=== PATIENT | female | born 1990 | race African-American/Black ===

== ENCOUNTER → 2017-10-30 | Outpatient (REF) | payer SELFPAY ==
[2017-10-30 18:35] LABS: PLATELET COUNT, AUTOMATED 206 K/uL (150-450)
== END ==
PROVIDERS: ATTEND Nurse Practitioner Family
DX: R10.31 Right lower quadrant pain (principal)
CPT/HCPCS: 82040; 82247; 82310; 82374; 82435; 82565; 82947; 84075; 84132; 84155; 84295; 84450; 84460; 84520; 85025

== ENCOUNTER 2018-06-08 09:03 | Emergency (ER) | payer SELFPAY ==
--- NOTE | 2018-06-08 09:07 | ER Report ---
History and Physical Time Seen By MD: 09:07 HPI/ROS CHIEF COMPLAINT: Right upper quadrant abdominal pain, nausea, vomiting HISTORY OF PRESENT ILLNESS: Patient is a 27-year-old female here with complaints of right upper quadrant pain with radiation to the right shoulder, nausea, vomiting which acutely worsened today. Patient has a history of approximately 2 years of similar symptoms which are exacerbated with eating. Patient denies fevers, chills, chest pain, shortness of breath, headache, blurred vision, dysuria, hematuria, melena. Patient reports that over the past week the symptoms have progressively worsened. She reports attempting to eat breakfast however was unable to hold this down and she was not able to hold down her medications this morning. Patient reports taking medications for acid reflux and depression. Patient has vomited several times this morning and is actively nauseated and vomiting at time of evaluation. Patient denies prior abdominal surgeries REVIEW OF SYSTEMS: Constitutional: No fever, no chills. Eyes: No discharge. ENT: No sore throat. Cardiovascular: No chest pain, no palpitations. Respiratory: No cough, no shortness of breath. Gastrointestinal: + RUQ abdominal pain, + nausea and vomiting. Genitourinary: No hematuria. Musculoskeletal: No back pain, + right shoulder pain Skin: No rashes. Neurological: No headache. Allergies: Coded Allergies: No Known Drug Allergies (Unverified , 06/08/18) Home Meds Active Scripts Tramadol Hcl (TRAMADOL HCL) 50 Mg Tablet, 50 MG PO Q6H PRN for PAIN, #12 TAB 0 Refills Prov:CL SÁNCHEZ DO 06/08/18 Ondansetron (ZOFRAN ODT) 4 Mg Tab.rapdis, 4 MG PO Q6H PRN for NAUSEA/VOMITING, #20 TAB.JONATHAN 0 Refills Prov:CL SÁNCHEZ DO 06/08/18 Constitutional Vital Sign - Last 24 Hours 06/08/18 06/08/18 06/08/18 06/08/18 09:08 09:10 09:30 09:33 Temp 97.8 Pulse 97 94 Resp 24 B/P (MAP) 144/82 144/82 (102) 129/79 (96) Pulse Ox 96 O2 Delivery Room Air 06/08/18 06/08/18 06/08/18 06/08/18 10:00 10:03 10:30 10:33 Pulse 77 93 B/P (MAP) 136/50 (78) 131/69 (89) Pulse Ox 97 96 06/08/18 11:00 Pulse 82 B/P (MAP) 126/92 (103) Pulse Ox 94 Physical Exam General Appearance: The patient is alert, has no immediate need for airway protection and no signs of toxicity. Uncomfortable appearing Eyes: Pupils equal and round no pallor or injection. ENT, Mouth: Mucous membranes are moist. Respiratory: There are no retractions, lungs are clear to auscultation. Cardiovascular: Regular rate and rhythm. Gastrointestinal: Abdomen is soft and + tender int the RUQ, no masses, bowel sounds normal. Neurological: No focal neurological deficits Skin: Warm and dry, no rashes. Musculoskeletal: Neck is supple non tender. Extremities are nontender, nonswollen and have full range of motion. DIFFERENTIAL DIAGNOSIS: After history and physical exam differential diagnosis was considered for abdominal pain including but not limited to appendicitis, cholecystitis, gastritis and urinary tract infection. Medical Decision Making Data Points Result Diagram: 06/08/18 0912 06/08/18 0912 Laboratory Hematology Test 06/08/18 09:07 06/08/18 09:12 Urine Color Yellow Urine Clarity Slightly-cloudy Urine pH 5.0 pH (4.8-9.5) Urine Specific [place] 1.027 Urine Protein Negative mg/dL (NEGATIVE) Urine Glucose (UA) Negative mg/dL (NEGATIVE) Urine Ketones Negative mg/dL (NEGATIVE) Urine Blood Negative (NEGATIVE) Urine Nitrite Negative (NEGATIVE) Urine Bilirubin Negative (NEGATIVE) Urine Urobilinogen Negative mg/dL (0.2-1.9) Urine Leukocyte Esterase Trace (NEGATIVE) Urine RBC <1 /HPF (0-2/HPF) Urine WBC 8 /HPF (0-5/HPF) Urine Squamous Epithelial Cells Many /LPF (</=FEW) Urine Bacteria Negative /HPF (NONE-FEW) Urine Mucus Few /HPF (NONE-FEW) Red Blood Count 5.15 M/uL (4.17-5.56) Mean Corpuscular Volume 83.3 fL (80.0-96.0) Mean Corpuscular Hemoglobin 28.5 pg (26.0-33.0) Mean Corpuscular Hemoglobin Concent 34.2 g/dL (32.0-36.0) Red Cell Distribution Width 13.2 % (11.5-14.5) Mean Platelet Volume 10.6 fL (7.2-11.1) Neutrophils (%) (Auto) 66.3 % (39.4-72.5) Lymphocytes (%) (Auto) 24.8 % (17.6-49.6) Monocytes (%) (Auto) 6.8 % (4.1-12.4) Eosinophils (%) (Auto) 1.6 % (0.4-6.7) Basophils (%) (Auto) 0.5 % (0.3-1.4) Nucleated RBC Relative Count (auto) 0.0 /100WBC Neutrophils # (Auto) 3.7 K/uL (2.0-7.4) Lymphocytes # (Auto) 1.4 K/uL (1.3-3.6) Monocytes # (Auto) 0.4 K/uL (0.3-1.0) Eosinophils # (Auto) 0.1 K/uL (0.0-0.5) Basophils # (Auto) 0.0 K/uL (0.0-0.1) Nucleated RBC Absolute Count (auto) 0.00 K/uL Sodium Level 142 mmol/L (137-145) Potassium Level 3.7 mmol/L (3.5-5.0) Chloride Level 104 mmol/L (98-107) Carbon Dioxide Level 25 mmol/L (22-31) Blood Urea Nitrogen 15 mg/dl (7-18) Creatinine 0.80 mg/dl (0.52-1.04) Glomerular Filtration Rate Calc > 60.0 Random Glucose 105 mg/dl (75-110) Calcium Level 9.3 mg/dl (8.4-10.2) Total Bilirubin 0.7 mg/dl (0.2-1.3) Aspartate Amino Transf (AST/SGOT) 73 U/L (0-35) Alanine Aminotransferase (ALT/SGPT) 65 U/L (0-56) Alkaline Phosphatase 71 U/L (0-126) Total Protein 7.7 g/dl (6.3-8.2) Albumin 4.3 g/dl (3.5-5.0) Lipase 79 U/L (23-300) Human Chorionic Gonadotropin, Qual Negative (NEGATIVE) Chemistry Test 06/08/18 09:07 06/08/18 09:12 Urine Color Yellow Urine Clarity Slightly-cloudy Urine pH 5.0 pH (4.8-9.5) Urine Specific [place] 1.027 Urine Protein Negative mg/dL (NEGATIVE) Urine Glucose (UA) Negative mg/dL (NEGATIVE) Urine Ketones Negative mg/dL (NEGATIVE) Urine Blood Negative (NEGATIVE) Urine Nitrite Negative (NEGATIVE) Urine Bilirubin Negative (NEGATIVE) Urine Urobilinogen Negative mg/dL (0.2-1.9) Urine Leukocyte Esterase Trace (NEGATIVE) Urine RBC <1 /HPF (0-2/HPF) Urine WBC 8 /HPF (0-5/HPF) Urine Squamous Epithelial Cells Many /LPF (</=FEW) Urine Bacteria Negative /HPF (NONE-FEW) Urine Mucus Few /HPF (NONE-FEW) White Blood Count 5.6 k/uL (4.5-11.0) Red Blood Count 5.15 M/uL (4.17-5.56) Hemoglobin 14.7 g/dL (12.0-16.0) Hematocrit 42.9 % (34.0-47.0) Mean Corpuscular Volume 83.3 fL (80.0-96.0) Mean Corpuscular Hemoglobin 28.5 pg (26.0-33.0) Mean Corpuscular Hemoglobin Concent 34.2 g/dL (32.0-36.0) Red Cell Distribution Width 13.2 % (11.5-14.5) Platelet Count 225 K/uL (150-450) Mean Platelet Volume 10.6 fL (7.2-11.1) Neutrophils (%) (Auto) 66.3 % (39.4-72.5) Lymphocytes (%) (Auto) 24.8 % (17.6-49.6) Monocytes (%) (Auto) 6.8 % (4.1-12.4) Eosinophils (%) (Auto) 1.6 % (0.4-6.7) Basophils (%) (Auto) 0.5 % (0.3-1.4) Nucleated RBC Relative Count (auto) 0.0 /100WBC Neutrophils # (Auto) 3.7 K/uL (2.0-7.4) Lymphocytes # (Auto) 1.4 K/uL (1.3-3.6) Monocytes # (Auto) 0.4 K/uL (0.3-1.0) Eosinophils # (Auto) 0.1 K/uL (0.0-0.5) Basophils # (Auto) 0.0 K/uL (0.0-0.1) Nucleated RBC Absolute Count (auto) 0.00 K/uL Glomerular Filtration Rate Calc > 60.0 Calcium Level 9.3 mg/dl (8.4-10.2) Total Bilirubin 0.7 mg/dl (0.2-1.3) Aspartate Amino Transf (AST/SGOT) 73 U/L (0-35) Alanine Aminotransferase (ALT/SGPT) 65 U/L (0-56) Alkaline Phosphatase 71 U/L (0-126) Total Protein 7.7 g/dl (6.3-8.2) Albumin 4.3 g/dl (3.5-5.0) Lipase 79 U/L (23-300) Human Chorionic Gonadotropin, Qual Negative (NEGATIVE) Urinalysis Test 06/08/18 09:07 Urine Color Yellow Urine Clarity Slightly-cloudy Urine pH 5.0 pH (4.8-9.5) Urine Specific [place] 1.027 Urine Protein Negative mg/dL (NEGATIVE) Urine Glucose (UA) Negative mg/dL (NEGATIVE) Urine Ketones Negative mg/dL (NEGATIVE) Urine Blood Negative (NEGATIVE) Urine Nitrite Negative (NEGATIVE) Urine Bilirubin Negative (NEGATIVE) Urine Urobilinogen Negative mg/dL (0.2-1.9) Urine Leukocyte Esterase Trace (NEGATIVE) Urine RBC <1 /HPF (0-2/HPF) Urine WBC 8 /HPF (0-5/HPF) Urine Squamous Epithelial Cells Many /LPF (</=FEW) Urine Bacteria Negative /HPF (NONE-FEW) Urine Mucus Few /HPF (NONE-FEW) EKG/Imaging Imaging GALLBLADDER HISTORY: RUQ abd pain COMPARISON: None. FINDINGS: Gallbladder: Gallbladder is partially contracted and not ideally evaluated. By history the patient ate 1 1/2 hours previously. No definite stones or sludge identified. Liver: Negative. Common duct: Normal, two mm diameter. Pancreas: Obscured by bowel gas Right kidney: Unremarkable measuring 8.9 cm in length Upper abdominal aorta and IVC: Patent. Ascites: None visualized. IMPRESSION: Gallbladder is partially contracted and not ideally evaluated. By history the patient had a recent meal. No definite stones or sludge identified ED Course/Re-evaluation ED Course Patient is a 27-year-old female here with complaints of right upper quadrant abdominal pain, nausea, vomiting with suspected gallbladder disease. Patient has had these symptoms on and off for approximately 2 years however she reports that over the past week the symptoms acutely worsened. Patient is unable to hold down oral intake at this time having several episodes of vomiting after attempting to take her medications in the morning and her breakfast. Ultrasound of the right upper quadrant was completed to evaluate for gallbladder disease and was unremarkable. Patient was given Zofran, fluids and later reglan and a GI cocktail. Labs were unremarkable and patient was discussed with Dr. Miguel who will follow with her in the outpatient setting. Tramadol and Zofran were given for OP treatment and patient was advised to take omeprazole 40 mg BID until follow up. Patient was stable at time of discharge. Decision to Disposition Date: Jun 08, 2018 Decision to Disposition Time: 11:16 Depart Departure Latest Vital Signs Vital Signs Date Time Temp Pulse Resp B/P (MAP) Pulse Ox O2 Delivery O2 Flow Rate FiO2 06/08/18 11:00 82 126/92 (103) 94 06/08/18 09:08 97.8 24 Room Air Impression: Primary Impression: Right upper quadrant abdominal pain Additional Impression: Nausea and vomiting Condition: Improved Disposition: HOME OR SELF-CARE New Scripts Tramadol Hcl (TRAMADOL HCL) 50 Mg Tablet 50 MG PO Q6H PRN for PAIN, #12 TAB 0 Refills Prov: CL SÁNCHEZ DO 06/08/18 Ondansetron (ZOFRAN ODT) 4 Mg Tab.rapdis 4 MG PO Q6H PRN for NAUSEA/VOMITING, #20 TAB.JONATHAN 0 Refills Prov: CL SÁNCHEZ DO 06/08/18 Patient Instructions: Abdominal Pain (ED) Additional Instructions: Please take omeprazole 40mg twice daily 30 minutes before meals for the next 2 weeks. You may take 1 tablet of Zofran every 4-6 hours as needed for nausea. You may take 1 tablet of tramadol every 6-8 hours as needed for pain control. Please follow-up with Dr. Miguel in the next 2 weeks for further evaluation of gastritis and gallbladder disease. Please return promptly develop worsening pain, fevers, inability to hold down fluids or food. Problem Qualifiers CL SÁNCHEZ DO Jun 08, 2018 09:07
[2018-06-08] MEDS ORDERED: ONDANSETRON 4 MG/2 ML VIAL IVP ONE ×2 (09:15→09:20)
[2018-06-08] MEDS ORDERED: NS(*) 0.9% 1000 ML BAG 1,000 ML IV ONE (09:17)
[2018-06-08 09:34] LABS: PLATELET COUNT, AUTOMATED 225 K/uL (150-450)
--- NOTE | 2018-06-08 10:35 | RADIOLOGY IMAGING REPORT ---
FACILITY: [facility] PATIENT NAME: Sandra Gordon : 1990 MR: [id number] V: [id number] EXAM DATE: ORDERING PHYSICIAN: CL SÁNCHEZ TECHNOLOGIST: Location: [facility] [place] Patient: Sandra Gordon : 1990 Visit/Account:[id number] Date of Sevice: 06/08/2018 GALLBLADDER HISTORY: RUQ abd pain COMPARISON: None. FINDINGS: Gallbladder: Gallbladder is partially contracted and not ideally evaluated. By history the patient a te 1 1/2 hours previously. No definite stones or sludge identified. Liver: Negative. Common duct: Normal, two mm diameter. Pancreas: Obscured by bowel gas Right kidney: Unremarkable measuring 8.9 cm in length Upper abdominal aorta and IVC: Patent. Ascites: None visualized. IMPRESSION: Gallbladder is partially contracted and not ideally evaluated. By history the patient had a recent m eal. No definite stones or sludge identified Report Dictated By: Jelena Ji MD at 06/08/2018 10:28 AM Report E-Signed By: Jelena Ji MD at 06/08/2018 10:30 AM WSN:[email or web address]
[2018-06-08] MEDS ORDERED: METOCLOPRAMIDE 10 MG/2 ML SDV IVP ONE (10:50)
[2018-06-08] MEDS ORDERED: MAG HYD/AL HYD/SIMETH 30ML UDC PO ONE (10:55)
[2018-06-08] MEDS ORDERED: ATRO/SCOPOL/HYOSCY/PB 5 ML ELX PO ONE (10:55)
[2018-06-08] MEDS ORDERED: LIDOCAINE 2% VISC SLN 15ML UDC PO ONE (10:55)
[2018-06-08 11:00] VITALS: BP 126/92
[2018-06-08] MEDS ORDERED: ONDA4TAB PO (11:20)
[2018-06-08] MEDS ORDERED: TRAM-420 PO (11:20)
== END 2018-06-08 11:37 | disposition home or self-care (01) ==
LOC: ER 09:11
DX: R10.11 Right upper quadrant pain (principal); R11.2 Nausea with vomiting, unspecified
CPT/HCPCS: 76705; 81001; 83690; 84703; 85025; 96374; 96375; 99284; J2405; J2765; J7030; 82040; 82247; 82310; 82374; 82435; 82565; 82947; 84075; 84132; 84155; 84295; 84450; 84460; 84520

== ENCOUNTER 2018-10-13 00:33 | Inpatient (IN) | payer OTHER ==
[2018-10-13] VITALS (36 sets, daily range): BP systolic 92–156; BP diastolic 36–100
[~2018-10-13 00:33] MED LIST: ONDA4TAB PO; TRAM-420 PO
[2018-10-13] MEDS ORDERED: NS(*) 0.9% 1000 ML BAG 1,000 ML IV ONE (00:35)
[2018-10-13] MEDS ORDERED: ACTIVATED CHAR/SORB 25GM/120ML PO ONE (00:35)
--- NOTE | 2018-10-13 00:41 | ER Report ---
History and Physical Time Seen By MD: 00:34 Hx. of Stated Complaint: PT HAD SUICIDE ATTEMPT WITH OD ON MULTIPLE PILLS. HPI/ROS CHIEF COMPLAINT: Attempted overdose HISTORY OF PRESENT ILLNESS: This is a 28-year-old female. She is brought to ER by EMS. She has been depressed and suicidal on and off for a few weeks now, roseanne g-standing history of depression. Has been admitted to [facility] in the past for depression. Tonight, she acted on her suicidal thoughts and took a large amount of medications. This happened at approximately midnight. We do not know the amounts. She says she took Tylenol, Excedrin, ibuprofen, and Benadryl. All of these were fairly full bottles that she emptied into her mouth, unknown how many, she estimates at least 50 or more of each. She also had old prescription bottles of naproxen 500 mg, ketorolac 10 mg, topiramate 50 mg, and amitriptyline 25 mg. She emptied the rest of these medicines into her mouth as well, unknown how many. After she took the medicines, she panicked and was sorry she had done so and talked to her roommate which is how it came to light. She is now panicky and crying. She also feels very dizzy and her heart is racing. She does feel very nauseated. She denies any chest pain or shortness of breath at this time. No recent illnesses. She did leave suicide notes behind. She is currently under emergency skilled nursing by [place] [employer]. Allergies: Coded Allergies: No Known Drug Allergies (Unverified , 06/08/18) Home Meds Active Scripts Tramadol Hcl (TRAMADOL HCL) 50 Mg Tablet, 50 MG PO Q6H PRN for PAIN, #12 TAB 0 Refills Prov:CL SÁNCHEZ DO 06/08/18 Ondansetron (ZOFRAN ODT) 4 Mg Tab.rapdis, 4 MG PO Q6H PRN for NAUSEA/VOMITING, #20 TAB.JONATHAN 0 Refills Prov:CL SÁNCHEZ DO 06/08/18 Reviewed Nurses Notes: Yes Hx Substance Use Disorder: No Hx Alcohol Use: No Constitutional Vital Sign - Last 24 Hours 10/13/18 10/13/18 10/13/18 10/13/18 00:34 00:35 00:40 00:48 Pulse 149 160 Resp 14 15 B/P (MAP) 150/97 (114) 150/97 136/97 (110) Pulse Ox 88 97 O2 Delivery Room Air 10/13/18 10/13/18 10/13/18 10/13/18 00:50 00:55 01:00 01:03 Resp 21 B/P (MAP) 144/82 (102) 142/81 (101) 147/83 (104) Pulse Ox 92 10/13/18 10/13/18 10/13/18 10/13/18 01:05 01:20 01:33 01:38 Pulse 122 140 Resp 15 34 B/P (MAP) 143/89 (107) 128/72 (90) 106/63 (77) 10/13/18 10/13/18 10/13/18 10/13/18 01:45 01:53 02:01 02:08 Pulse 125 127 Resp 26 22 B/P (MAP) 121/73 (89) 136/77 (96) Pulse Ox 94 93 10/13/18 10/13/18 10/13/18 10/13/18 02:23 02:30 02:38 02:53 Pulse 128 171 128 Resp 23 24 21 B/P (MAP) 121/69 (86) Pulse Ox 93 93 92 10/13/18 03:13 Pulse 125 Resp 21 Pulse Ox 91 Intake and Output 10/12/18 10/12/18 10/13/18 14:59 22:59 06:59 Intake Total 1000 ml Balance 1000 ml Physical Exam General Appearance: The patient is alert. She is panicked and crying in tears. Eyes: Pupils are equal, round. Reactive to light. She has injection from crying, no pallor or icterus noted. Extraocular movements are intact. ENT: Mucous membranes are moist. Normal oral mucosa. Posterior oropharynx is normal. Neck: Supple and non tender. Respiratory: Lungs are clear to auscultation. Cardiovascular: Tachycardic with a regular rhythm. No murmurs, gallops or rubs. Normal capillary refill. No edema. Gastrointestinal: Abdomen is soft and non tender. Nondistended. Normal active bowel sounds. Neurological: Alert and oriented x3. She is moving all extremities. No focal neurologic deficits noted. Skin: Warm and dry. No rashes. Musculoskeletal: Extremities are nontender. No tenderness in palpation of the cervical, thoracic and lumbar spine. DIFFERENTIAL DIAGNOSIS: After history and physical exam, differential diagnosis was considered for overdose of multiple medications. We will go ahead and call poison control to get this list. She's been given 25 g of activated charcoal with sorbitol. IV started with a liter of normal saline. On the heart monitor and monitoring for now. Medical Decision Making Data Points Result Diagram: 10/13/18 0042 10/13/18 0042 Laboratory Hematology Test 10/13/18 00:42 10/13/18 00:57 10/13/18 02:45 Red Blood Count 5.20 M/uL (4.17-5.56) Mean Corpuscular Volume 82.1 fL (80.0-96.0) Mean Corpuscular Hemoglobin 27.7 pg (26.0-33.0) Mean Corpuscular Hemoglobin Concent 33.8 g/dL (32.0-36.0) Red Cell Distribution Width 13.6 % (11.5-14.5) Mean Platelet Volume 10.3 fL (7.2-11.1) Neutrophils (%) (Auto) 69.0 % (39.4-72.5) Lymphocytes (%) (Auto) 23.7 % (17.6-49.6) Monocytes (%) (Auto) 6.0 % (4.1-12.4) Eosinophils (%) (Auto) 0.7 % (0.4-6.7) Basophils (%) (Auto) 0.6 % (0.3-1.4) Nucleated RBC Relative Count (auto) 0.0 /100WBC Neutrophils # (Auto) 7.1 K/uL (2.0-7.4) Lymphocytes # (Auto) 2.4 K/uL (1.3-3.6) Monocytes # (Auto) 0.6 K/uL (0.3-1.0) Eosinophils # (Auto) 0.1 K/uL (0.0-0.5) Basophils # (Auto) 0.1 K/uL (0.0-0.1) Nucleated RBC Absolute Count (auto) 0.00 K/uL Sodium Level 138 mmol/L (137-145) Potassium Level 3.5 mmol/L (3.5-5.0) Chloride Level 105 mmol/L (98-107) Carbon Dioxide Level 21 mmol/L (22-31) Blood Urea Nitrogen 17 mg/dl (7-18) Creatinine 0.90 mg/dl (0.52-1.04) Glomerular Filtration Rate Calc > 60.0 Random Glucose 114 mg/dl (75-110) Calcium Level 9.5 mg/dl (8.4-10.2) Magnesium Level 1.8 mg/dl (1.7-2.2) Total Bilirubin 0.4 mg/dl (0.2-1.3) Aspartate Amino Transf (AST/SGOT) 42 U/L (0-35) Alanine Aminotransferase (ALT/SGPT) 45 U/L (0-56) Alkaline Phosphatase 119 U/L (0-126) Total Protein 8.0 g/dl (6.3-8.2) Albumin 4.3 g/dl (3.5-5.0) Acetaminophen Level 11 ug/ml Serum Alcohol < 10 mg/dl Urine Color Yellow Urine Clarity Clear Urine pH 7.0 pH (4.8-9.5) Urine Specific [place] 1.028 Urine Protein 30 mg/dL (NEGATIVE) Urine Glucose (UA) Negative mg/dL (NEGATIVE) Urine Ketones Negative mg/dL (NEGATIVE) Urine Blood Negative (NEGATIVE) Urine Nitrite Negative (NEGATIVE) Urine Bilirubin Negative (NEGATIVE) Urine Urobilinogen Negative mg/dL (0.2-1.9) Urine Leukocyte Esterase Negative (NEGATIVE) Urine RBC <1 /HPF (0-2/HPF) Urine WBC 1 /HPF (0-5/HPF) Urine Squamous Epithelial Cells Many /LPF (NONE-FEW) Urine Bacteria Negative /HPF (NONE-FEW) Urine Mucus Few /HPF (NONE-FEW) Urine HCG, Qualitative Negative (NEGATIVE) Urine Opiates Screen Negative Urine Barbiturates Screen Negative Ur Tricyclic Antidepressants Screen Positive Urine Phencyclidine Screen Negative Urine Amphetamines Screen Negative Urine Benzodiazepines Screen Negative Urine Cocaine Screen Negative Urine Cannabinoids Screen Positive Salicylates Level < 10 mg/L Salicylate Last Dose Date unk Chemistry Test 10/13/18 00:42 10/13/18 00:57 10/13/18 02:45 White Blood Count 10.3 k/uL (4.5-11.0) Red Blood Count 5.20 M/uL (4.17-5.56) Hemoglobin 14.4 g/dL (12.0-16.0) Hematocrit 42.7 % (34.0-47.0) Mean Corpuscular Volume 82.1 fL (80.0-96.0) Mean Corpuscular Hemoglobin 27.7 pg (26.0-33.0) Mean Corpuscular Hemoglobin Concent 33.8 g/dL (32.0-36.0) Red Cell Distribution Width 13.6 % (11.5-14.5) Platelet Count 266 K/uL (150-450) Mean Platelet Volume 10.3 fL (7.2-11.1) Neutrophils (%) (Auto) 69.0 % (39.4-72.5) Lymphocytes (%) (Auto) 23.7 % (17.6-49.6) Monocytes (%) (Auto) 6.0 % (4.1-12.4) Eosinophils (%) (Auto) 0.7 % (0.4-6.7) Basophils (%) (Auto) 0.6 % (0.3-1.4) Nucleated RBC Relative Count (auto) 0.0 /100WBC Neutrophils # (Auto) 7.1 K/uL (2.0-7.4) Lymphocytes # (Auto) 2.4 K/uL (1.3-3.6) Monocytes # (Auto) 0.6 K/uL (0.3-1.0) Eosinophils # (Auto) 0.1 K/uL (0.0-0.5) Basophils # (Auto) 0.1 K/uL (0.0-0.1) Nucleated RBC Absolute Count (auto) 0.00 K/uL Glomerular Filtration Rate Calc > 60.0 Calcium Level 9.5 mg/dl (8.4-10.2) Magnesium Level 1.8 mg/dl (1.7-2.2) Total Bilirubin 0.4 mg/dl (0.2-1.3) Aspartate Amino Transf (AST/SGOT) 42 U/L (0-35) Alanine Aminotransferase (ALT/SGPT) 45 U/L (0-56) Alkaline Phosphatase 119 U/L (0-126) Total Protein 8.0 g/dl (6.3-8.2) Albumin 4.3 g/dl (3.5-5.0) Acetaminophen Level 11 ug/ml Serum Alcohol < 10 mg/dl Urine Color Yellow Urine Clarity Clear Urine pH 7.0 pH (4.8-9.5) Urine Specific [place] 1.028 Urine Protein 30 mg/dL (NEGATIVE) Urine Glucose (UA) Negative mg/dL (NEGATIVE) Urine Ketones Negative mg/dL (NEGATIVE) Urine Blood Negative (NEGATIVE) Urine Nitrite Negative (NEGATIVE) Urine Bilirubin Negative (NEGATIVE) Urine Urobilinogen Negative mg/dL (0.2-1.9) Urine Leukocyte Esterase Negative (NEGATIVE) Urine RBC <1 /HPF (0-2/HPF) Urine WBC 1 /HPF (0-5/HPF) Urine Squamous Epithelial Cells Many /LPF (NONE-FEW) Urine Bacteria Negative /HPF (NONE-FEW) Urine Mucus Few /HPF (NONE-FEW) Urine HCG, Qualitative Negative (NEGATIVE) Urine Opiates Screen Negative Urine Barbiturates Screen Negative Ur Tricyclic Antidepressants Screen Positive Urine Phencyclidine Screen Negative Urine Amphetamines Screen Negative Urine Benzodiazepines Screen Negative Urine Cocaine Screen Negative Urine Cannabinoids Screen Positive Salicylates Level < 10 mg/L Salicylate Last Dose Date unk Toxicology Test 10/13/18 00:42 10/13/18 00:57 10/13/18 02:45 Acetaminophen Level 11 ug/ml Serum Alcohol < 10 mg/dl Urine Opiates Screen Negative Urine Barbiturates Screen Negative Ur Tricyclic Antidepressants Screen Positive Urine Phencyclidine Screen Negative Urine Amphetamines Screen Negative Urine Benzodiazepines Screen Negative Urine Cocaine Screen Negative Urine Cannabinoids Screen Positive Salicylates Level < 10 mg/L Salicylate Last Dose Date unk Urinalysis Test 10/13/18 00:57 Urine Color Yellow Urine Clarity Clear Urine pH 7.0 pH (4.8-9.5) Urine Specific [place] 1.028 Urine Protein 30 mg/dL (NEGATIVE) Urine Glucose (UA) Negative mg/dL (NEGATIVE) Urine Ketones Negative mg/dL (NEGATIVE) Urine Blood Negative (NEGATIVE) Urine Nitrite Negative (NEGATIVE) Urine Bilirubin Negative (NEGATIVE) Urine Urobilinogen Negative mg/dL (0.2-1.9) Urine Leukocyte Esterase Negative (NEGATIVE) Urine RBC <1 /HPF (0-2/HPF) Urine WBC 1 /HPF (0-5/HPF) Urine Squamous Epithelial Cells Many /LPF (NONE-FEW) Urine Bacteria Negative /HPF (NONE-FEW) Urine Mucus Few /HPF (NONE-FEW) Urine HCG, Qualitative Negative (NEGATIVE) EKG/Imaging EKG Interpretation 12 lead EKG: Rhythm: Supraventricular tachycardia, rate 164 [place]: normal QRS: normal ST segments: normal ED Course/Re-evaluation Clinical Indication for ER IV: Hydration, IV Access ED Course Patient very worked up initially. Tachycardia finally came down to a more reasonable level with IV fluids. She became more and more groggy with slurring speech. Poison control contacted. Watching for a 4 hour and 7 hour tylenol levels. Salicylates to be repeated every 2 hours and watching for further changes. Monitor shows no further ectopy, narrow complex QRS and sinus tachycardia. As she became more groggy, started to be confused and combative at times. Used soft restraints and later after family arrived, they were able to help keep her calm. Discussed current labs and what we are going to be doing going forward with her mother. Repeat aspirin level negative. Admitted to the ICU, Dr. Souza. Emergency skilled nursing upheld, but not medically clear. Decision to Disposition Date: Oct 13, 2018 Decision to Disposition Time: 03:11 Depart Departure Latest Vital Signs Vital Signs Date Time Temp Pulse Resp B/P (MAP) Pulse Ox O2 Delivery O2 Flow Rate FiO2 10/13/18 03:13 125 21 91 10/13/18 02:30 121/69 (86) 10/13/18 00:35 Room Air Impression: Primary Impression: Overdose Additional Impression: Suicide attempt by drug ingestion Condition: Critical Disposition: Admitted from ER Problem Qualifiers Primary Impression: Overdose Encounter type: initial encounter Injury intent: intentional self-harm Qualified Codes: T50.902A - Poisoning by unspecified drugs, medicaments and biological substances, intentional self-harm, initial encounter Additional Impression: Suicide attempt by drug ingestion Encounter type: initial encounter Qualified Codes: T50.902A - Poisoning by unspecified drugs, medicaments and biological substances, intentional self- harm, initial encounter BRANDY TOLENTINO MD Oct 13, 2018 00:41
[2018-10-13 01:35] LABS: PLATELET COUNT, AUTOMATED 266 K/uL (150-450)
--- NOTE | 2018-10-13 01:41 | EKG ---
[place] [facility] [place] NAME: RACHEL RAINEY : [id number] MR: [id number] V: [id number] EXAM DATE: ORDERING PHYSICIAN: BRANDY TOLENTINO TECHNOLOGIST: DIANNE Test Reason : OD Blood Pressure : / mmHG Vent. Rate : 164 BPM Atrial Rate : 166 BPM P-R Int : 000 ms QRS Dur : 076 ms QT Int : 284 ms P-R-T Axes : 000 050 027 degrees QTc Int : 469 ms Supraventricular tachycardia T wave abnormality, consider inferior ischemia Abnormal ECG No previous ECGs available Confirmed by HALEY ROBERTSON ([id number]) on 10/13/2018 6:18:17 AM Referred By: Confirmed By:HALEY ROBERTSON
--- NOTE | 2018-10-13 03:28 | BHS - Psychiatric Evaluation ---
ER - Title 25 MHE Evaluation Title 25 Evaluation Patient Detained By: Law Enforcement Referral Source: Patient told her roommate what she did and contacted EMS Date Patient Detained: Oct 13, 2018 Time Patient Detained: 00:45 Date Fdc Expires: Oct 18, 2018 Time Fdc Expires: 00:45 Legal Status: Police Hold: No Legal Status: Residence: [facility] Assessment Data Provided By: Patient, Law Enforcement, Family Member(s), Friend(s) HPI/ROS: CHIEF COMPLAINT: Attempted overdose HISTORY OF PRESENT ILLNESS: This is a 28-year-old female. She is brought to ER by EMS. She has been depressed and suicidal on and off for a few weeks now, long-standing history of depression. Has been admitted to [facility] in the past for depression. Tonight, she acted on her suicidal thoughts and took a large amount of medications. This happened at approximately midnight. We do not know the amounts. She says she took Tylenol, Excedrin, ibuprofen, and Benadryl. All of these were fairly full bottles that she emptied into her mouth, unknown how many, she estimates at least 50 or more of each. She also had old prescription bottles of naproxen 500 mg, ketorolac 10 mg, topiramate 50 mg, and amitriptyline 25 mg. She emptied the rest of these medicines into her mouth as well, unknown how many. After she took the medicines, she panicked and was sorry she had done so and talked to her roommate which is how it came to light. She is now panicky and crying. She also feels very dizzy and her heart is racing. She does feel very nauseated. She denies any chest pain or shortness of breath at this time. No recent illnesses. She did leave suicide notes behind. She is currently under emergency senior care by [employer]. Admit due to SI or Attempt: Yes Suicide Plan: Has Plan with Access Alcohol or Drugs Involved: Yes Is Patient Info Reliable: Yes Is Collateral Info Reliable: Yes Mental Status Exam General Appearance: Tearful Speech: Clear, Spontaneous Mood: Dysthmic/Depressed Affect: Sad Thought Process: Organized Thought Content: Suicidal Ideation Sensorium: Other (mild groggy) Cognition: Alert & Oriented-Person, Alert & Oriented-Place, Alert & Oriented- Time, Cxieq-Fgznhote-Ghoynppvk Memory: Recent Insight Judgment: Fair Current Risk & History Current Dangerous Risk Assessm: Current Suicide Ideation, Current Suicide Attempt Past Dangerous Risk Assessm: Suicide Ideation-last 6mo Previous Suicide Attempt: No Previous Attempt Previous Psychiatric Illness: Yes Previous Diagnosis/Treatment: Had been admitted to [facility] in the past, reported as a very bad experience. Previous Psychiatric Treatment: Yes Risk Assessment & Disposition Evaluated Risk Assessment: Current high risk, but needs medical clearance and then behavioral health intervention Impression: Primary Impression: Overdose Additional Impression: Suicide attempt by drug ingestion Meets Mental Illness Req.: Yes Meets Dangerousness Req.: Yes Emergency Fdc to be: Upheld Date of Decision: Oct 13, 2018 Time of Decision: 03:12 Patient is Medically Stable at: No Disposition: ICU Problem Qualifiers Primary Impression: Overdose Encounter type: initial encounter Injury intent: intentional self-harm Qualified Codes: T50.902A - Poisoning by unspecified drugs, medicaments and biological substances, intentional self-harm, initial encounter Additional Impression: Suicide attempt by drug ingestion Encounter type: initial encounter Qualified Codes: T50.902A - Poisoning by unspecified drugs, medicaments and biological substances, intentional self- harm, initial encounter BRANDY TOLENTINO MD Oct 13, 2018 03:28
[2018-10-13] MEDS ORDERED: NS(*) 0.9% 1000 ML BAG 1,000 ML IV PRN (04:48)
[2018-10-13] MEDS ORDERED: INFLUENZA VIRUS VAC 0.5ML SYR IM ONLY ONE (04:50)
--- NOTE | 2018-10-13 04:59 | History & Physical ---
History of Present Illness Chief Complaint Overdose History of Present Illness This patient presented to the emergency room after a suicide attempt by overdose. She reports taking acetaminophen, Excedrin, ibuprofen, Benadryl, naproxen, ketorolac, topiramate, and amitriptyline. She was placed on a police hold in the emergency department. She does have a prior history of suicide attempt. History Problems: (1) Suicide attempt by drug ingestion Status: Acute Home Meds Active Scripts Tramadol Hcl (TRAMADOL HCL) 50 Mg Tablet, 50 MG PO Q6H PRN for PAIN, #12 TAB 0 Refills Prov:CL SÁNCHEZ S DO 06/08/18 Ondansetron (ZOFRAN ODT) 4 Mg Tab.rapdis, 4 MG PO Q6H PRN for NAUSEA/VOMITING, #20 TAB.JONATHAN 0 Refills Prov:CL SÁNCHEZ S DO 06/08/18 Allergies: Coded Allergies: No Known Drug Allergies (Unverified , 06/08/18) Hx Alcohol Use: No Review of Systems All Systems Reviewed/Normal: Yes Exam Vital Signs Vital Signs Date Time Temp Pulse Resp B/P (MAP) Pulse Ox O2 Delivery O2 Flow Rate FiO2 10/13/18 03:54 121 23 92 10/13/18 02:30 121/69 (86) 10/13/18 00:35 Room Air Neuro: No Gross deficits Eyes: PERRLA Cardiovascular: Regular Rate and Rhythm Respiratory: Clear to Auscultation GI: Abd Soft and Non-Tender Extremities: No Edema Integumentary: No Cyanosis Psych: Other (Lethargic.) Medical Decision Making Data Points Result Diagram: 10/13/18 0042 10/13/18 004 Item Value Date Time Ur Tricyclic Antidepressants Screen Positive 10/13/18 005 Urine Cannabinoids Screen Positive 10/13/18 005 Serum Alcohol < 10 mg/dl 10/13/18 0042 Salicylates Level < 10 mg/L 10/13/18 004 Salicylates Level < 10 mg/L 10/13/18 0245 Acetaminophen Level 11 ug/ml 10/13/18 0042 Assessment and Plan Problems: (1) Suicide attempt by drug ingestion Status: Acute Assessment & Plan: She reports taking multiple medications in a suicide attempt. We do not know the quantities of the medications. Her salicylate levels have remained negative on repeat testing. Her initial acetaminophen level was 11, a repeat level is currently pending. She is mostly lethargic and tachycardic on arrival to the ICU. Recommendations from poison control are listed on her chart. We will observe her in the ICU, and plan for transfer to psychiatry once she is stable. Venous Thromboembolism Antithrombotics Is Pt On Any Antithrombotics?: No Exam Sepsis Risk: No Definite Risk Problem Qualifiers (1) Suicide attempt by drug ingestion: Encounter type: initial encounter Qualified Codes: T50.902A - Poisoning by unspecified drugs, medicaments and biological substances, intentional self-harm, initial encounter HALEY ROBERTSON DO Oct 13, 2018 04:59
[2018-10-13] MEDS ORDERED: LORazepam 2 MG/ML VIAL IVP PRN (07:30)
[2018-10-13] MEDS ORDERED: PROMETHAZINE 25 MG/ML 1 ML AMP IVP PRN (07:30)
[2018-10-13 08:07] LABS: PLATELET COUNT, AUTOMATED 220 K/uL (150-450)
--- NOTE | 2018-10-13 08:17 | EKG ---
FACILITY: [facility] PATIENT NAME: RACHEL RAINEY : [id number] MR: [id number] V: [id number] EXAM DATE: ORDERING PHYSICIAN: HALEY ROBERTSON TECHNOLOGIST: Test Reason : OD Blood Pressure : / mmHG Vent. Rate : 116 BPM Atrial Rate : 116 BPM P-R Int : 150 ms QRS Dur : 082 ms QT Int : 340 ms P-R-T Axes : 062 059 027 degrees QTc Int : 472 ms Sinus tachycardia Otherwise normal ECG When compared with ECG of 13-OCT-2018 00:45, No significant change was found Confirmed by ALEA ZENDEJAS ([id number]) on 10/13/2018 4:15:03 PM Referred By: Confirmed By:ALEA ZENDEJAS
[2018-10-13] MEDS: LR(*) 1000 ML BAG 1,000 ML IV PRN ×3 (08:22→22:22)
[2018-10-13] MEDS ORDERED: ESCI20TA38 PO (09:09)
[2018-10-13] MEDS ORDERED: LAMO150T36 PO (09:09)
--- NOTE | 2018-10-13 14:28 | EKG ---
FACILITY: [facility] PATIENT NAME: RACHEL RAINEY : [id number] MR: [id number] V: [id number] EXAM DATE: ORDERING PHYSICIAN: ALEA ZENDEJAS TECHNOLOGIST: Test Reason : OD Blood Pressure : / mmHG Vent. Rate : 109 BPM Atrial Rate : 109 BPM P-R Int : 138 ms QRS Dur : 080 ms QT Int : 348 ms P-R-T Axes : 057 043 007 degrees QTc Int : 468 ms Sinus tachycardia Otherwise normal ECG When compared with ECG of 13-OCT-2018 08:06, No significant change was found Confirmed by ALEA ZENDEJAS ([id number]) on 10/13/2018 4:27:28 PM Referred By: Confirmed By:ALEA ZENDEJAS
--- NOTE | 2018-10-13 16:09 | NUR ---
Pt does report to nurse that she took "Six Benadryl first so that when I took the other medications I would just be sleepy." Pt reports she took "Ketorolac, Topamax, some small vick and blue pills that little old ladies take to sleep, Excedrin, Tylenol and Ibuprofen". Pt reports to nurse that she did not over dose on her current prescriptions of Lexapro and Lamictal. She reports taking these two mediations in the morning and at normal doses. Nurse has called ER x2, Pharmacy and S to locate a bag of the empty pill bottles. It is reported that there was a bag of bottles that were brought in by EMS. Bag has not been located.
--- NOTE | 2018-10-13 16:34 | Miscellaneous Provider Note ---
Miscellaneous Provider Note Note More awake and interactive this afternoon, but still having periods of sleeping a lot. Item Value Date Time Acetaminophen Level 17 ug/ml 10/13/18 0801 Salicylates Level < 10 mg/L 10/13/18 0801 Potassium Level 4.1 mmol/L 10/13/18 0801 Sodium Level 138 mmol/L 10/13/18 0801 Sodium Level 137 mmol/L 10/13/18 1359 Chloride Level 112 mmol/L H 10/13/18 1359 Carbon Dioxide Level 18 mmol/L L 10/13/18 1359 Potassium Level 4.0 mmol/L 10/13/18 1359 Blood Urea Nitrogen 11 mg/dl 10/13/18 1359 Creatinine 0.90 mg/dl 10/13/18 1359 Blood Urea Nitrogen 13 mg/dl 10/13/18 0801 Carbon Dioxide Level 16 mmol/L L 10/13/18 0801 Chloride Level 111 mmol/L H 10/13/18 0801 Creatinine 0.80 mg/dl 10/13/18 0801 Total Bilirubin 0.6 mg/dl 10/13/18 0801 Aspartate Amino Transf (AST/SGOT) 40 U/L H 10/13/18 0801 Alanine Aminotransferase (ALT/SGPT) 44 U/L 10/13/18 0801 Alkaline Phosphatase 91 U/L 10/13/18 0801 Alkaline Phosphatase 85 U/L 10/13/18 1359 Alanine Aminotransferase (ALT/SGPT) 40 U/L 10/13/18 1359 Aspartate Amino Transf (AST/SGOT) 37 U/L H 10/13/18 1359 Total Bilirubin 0.8 mg/dl 10/13/18 1359 Magnesium Level 2.0 mg/dl 10/13/18 1359 Acetaminophen Level 29 ug/ml 10/13/18 0504 Salicylates Level < 10 mg/L 10/13/18 0245 Vent. Rate : 109 BPM Atrial Rate : 109 BPM P-R Int : 138 ms QRS Dur : 080 ms QT Int : 348 ms P-R-T Axes : 057 043 007 degrees QTc Int : 468 ms Sinus tachycardia Otherwise normal ECG When compared with ECG of 13-OCT-2018 08:06, No significant change was found Confirmed by ALEA ZENDEJAS ([id number]) on 10/13/2018 4:27:28 PM No concerns with labs or QRS/QTc on ECG. Continue monitoring in the ICU until more awake and coherent. ALEA ZENDEJAS MD Oct 13, 2018 16:34
[2018-10-14] VITALS (29 sets, daily range): BP systolic 95–138; BP diastolic 58–97
[2018-10-14] MEDS: LR(*) 1000 ML BAG 1,000 ML IV PRN (04:58)
[2018-10-14 05:24] LABS: PLATELET COUNT, AUTOMATED 179 K/uL (150-450)
[2018-10-14] MEDS ORDERED: KCL (*) 20 MEQ/100 ML PREMIX 100 ML IV ONE ×2 (07:05→10:50)
--- NOTE | 2018-10-14 07:19 | Hospitalist Progress Note ---
Subjective Progress Notes Subjective She reports some constipation and not much appetite. No abdominal pain or nausea at present. Physical Exam Vital Signs Date Time Temp Pulse Resp B/P (MAP) Pulse Ox O2 Delivery O2 Flow Rate FiO2 10/14/18 06:30 105 15 138/77 (97) 93 Room Air 10/14/18 05:00 97.8 10/13/18 04:45 1.0 Intake and Output 10/14/18 06:59 Intake Total 3896 ml Balance 3896 ml Intake Oral 200 ml IV Total 3696 ml # Voids 3 General Appearance: Alert, Awake Cardiovascular: Other (Regular slightly tachycardic no murmur) Respiratory: Clear to Auscultation GI: Soft and Non-Tender (BS present) Extremities: Warm, Perfused Psych: Alert & Oriented X3 Result Diagram: 10/14/18 0503 10/14/18 0503 Assessment and Plan Problems: (1) Suicide attempt by drug ingestion Status: Acute Assessment & Plan: She reports taking multiple medications in a suicide attempt. We do not know the exact quantities of the medications. Her salicylate levels have remained negative on repeat testing. Her initial acetaminophen level was 11 and repeat testing did not place her into toxic range. She was somewhat lethargic and tachycardic on arrival to the ICU, but has improved significantly. EKG has not shown any changes and no dysrhythmias were noted. She did have some mild acidosis and mild hypokalemia. Will continue to monitor, replace electrolytes. Transfer to S unit when stable. (2) Hypokalemia Status: Acute Assessment & Plan: Mild. Will replace with IV supplement. Watch labs closely. Exam Sepsis Risk: No Definite Risk Problem Qualifiers (1) Suicide attempt by drug ingestion: Encounter type: initial encounter Qualified Codes: T50.902A - Poisoning by unspecified drugs, medicaments and biological substances, intentional self-harm, initial encounter ONEAL MARCIAL MD Oct 14, 2018 07:19
--- NOTE | 2018-10-14 08:03 | EKG ---
FACILITY: [facility] PATIENT NAME: RACHEL RAINEY : [id number] MR: [id number] V: [id number] EXAM DATE: ORDERING PHYSICIAN: ONEAL MARCIAL TECHNOLOGIST: Test Reason : OD Blood Pressure : / mmHG Vent. Rate : 113 BPM Atrial Rate : 113 BPM P-R Int : 128 ms QRS Dur : 082 ms QT Int : 334 ms P-R-T Axes : 063 044 007 degrees QTc Int : 458 ms Sinus tachycardia Otherwise normal ECG When compared with ECG of 13-OCT-2018 14:15, No significant change was found Confirmed by ONEAL MARCIAL ([id number]) on 10/14/2018 9:10:41 AM Referred By: Confirmed By:ONEAL MARCIAL
[2018-10-14] MEDS ORDERED: BISACODYL 10 MG SUPP PR PRN (09:25)
--- NOTE | 2018-10-14 11:44 | EKG ---
[place] [facility] [place] RACHEL RAINEY : [id number] MR: [id number] V: [id number] EXAM DATE: ORDERING PHYSICIAN: ONEAL MARCIAL TECHNOLOGIST: Test Reason : CHEST PAIN Blood Pressure : / mmHG Vent. Rate : 126 BPM Atrial Rate : 126 BPM P-R Int : 118 ms QRS Dur : 078 ms QT Int : 328 ms P-R-T Axes : 065 047 012 degrees QTc Int : 475 ms Sinus tachycardia No acute appearing changes noted When compared with ECG of 14-OCT-2018 07:51, No significant change was found Confirmed by ONEAL MARCIAL ([id number]) on 10/14/2018 4:35:32 PM Referred By: Confirmed By:ONEAL MARCIAL
--- NOTE | 2018-10-14 11:46 | RADIOLOGY IMAGING REPORT ---
FACILITY: [facility] - [place] PATIENT NAME: Sandra Gordon : 1990 MR: [id number] V: [id number] EXAM DATE: ORDERING PHYSICIAN: ONEAL MARCIAL TECHNOLOGIST: Location: [facility] [place] Patient: Sandra Gordon : 1990 Visit/Account:[id number] Date of Sevice: 10/14/2018 CHEST SINGLE AP INDICATION: chest pain COMPARISON: None available FINDINGS: Heart size within normal limits. There is no focal infiltrate or lobar consolidation. There is no pneumothorax or pleural effusion. IMPRESSION: 1. No acute cardiopulmonary process. Report Dictated By: Victoriano Childress at 10/14/2018 11:39 AM Report E-Signed By: Victoriano Childress at 10/14/2018 11:39 AM WSN:LAURYN
--- NOTE | 2018-10-14 13:25 | NUR ---
Poison control calls to check on pt. Recommended to continue to monitor QTc as needed. Noted that they also called 10/13 as well to check on pt - labs, EKG, VS and mentation.
[2018-10-14] MEDS ORDERED: LR(*) 1000 ML BAG 1,000 ML IV PRN (17:10)
[2018-10-14] MEDS ORDERED: MAGNESIUM HYDROXIDE* 30ML UDCP PO ONE (17:55)
[2018-10-15] VITALS (15 sets, daily range): BP systolic 117–135; BP diastolic 70–90
[2018-10-15 05:14] LABS: PLATELET COUNT, AUTOMATED 202 K/uL (150-450)
[2018-10-15] MEDS ORDERED: BISACODYL 10 MG SUPP PR PRN (07:50)
[2018-10-15] MEDS ORDERED: MAGNESIUM HYDROXIDE* 30ML UDCP PO PRN (07:50)
--- NOTE | 2018-10-15 08:36 | Medical Nutrition Therapy ---
Nutrition Anthropometrics Weight (Pounds): 228 Weight (Calculated Kilograms): 103.802 Volodymyr Nutrition Score: Adequate Volodymyr Nutrition Risk Score: 18 Dietary Referral Nutrition Risk Factors: Nutrition Risk Comment: Physical Findings Physical Appearance: Skin Appearance Skin Appearance: Edema Edema Location Modifier: Both Edema Location: Generalized Type of Edema: Degree of Edema: Gastrointestinal Symptoms GI Symtoms: Constipation Tube Present: Bowel Sounds: Recent Bowel Pattern: Stool Characteristics: Nutritional Diagnosis Nutritional Risk Acuity 3: Substance abuse Nutritional Acuity: 3-Mild Nutrition Diagnosis: Altered GI Function Nutrition Etiology: Psychological Issues Nutrition Problem/Etiology/Sym: Altered GI function as related to psychological issues as related to constipation due to drug overdose Energy Requirement: 2575 (25kcal/kg-missing ht making this the only calucation possible w/out ht) Protein Requirement: 82.4 (0.8 protein g/day) Fluid Requirement: 2000 (2000mL/day due to constipation) Diet Type: Diet as Tolerated REBECCA/REG Nutrition Intervention: Incr diet as tolerated Nutrition Monitoring & Eval Nutrition Goals: Eat 50-100% Meal, Drink > 1500 cc/day Nutrition Monitoring: Monitor appetite and for improvement in constipation RD Patient Assessment Time: [address] Assessment Type: RD Assessment Patient Nutrition Acuity: 3-Mild Follow Up Date: Oct 20, 2018 Nutritional Comment: Pt admitted for suicide attempt by overdose. pt is curretnly NPO. Alb 3.5. Will cont to monitor. 10/15/18-pt is currently on REBECCA with 100% intake for the 2 previous meals. Prior to lunch 10/14 pt had refused meals, reported constipation and poor appetite. Pt has non-pitting edema. Labs of intersts: K of 3.4 was low but has improved to WNL of 4.2. Cl of 111-114 is high and CO2 of 16-20 is low. Pt on polyethylene glycol (increase fiber and 1500-2000mL of water per day), docusate calcium (take with milk or juice to prevent throat irritation and mask bitter taste), bisacodyl (take on empty stomach with water and juice/avoid milk products for 1 hour prior and after), and magnesium hydroxide (take with water and juice) to manage constipation. Recommendations for constipation are: increase water to 1500-2000mL/day, increase fiber to 25 grams/day by increasing fruits/vegetable/whole grains, and increased physical activity. Monitor appetite and for improvement in constipation.-UMANG LAINEZ Oct 15, 2018 08:36
[2018-10-15] MEDS ORDERED: POLYETHYLENE GLYCOL 17 GM PKT PO SCH (09:00)
[2018-10-15] MEDS ORDERED: DOCUSATE SODIUM 100 MG CAP PO SCH (09:00)
--- NOTE | 2018-10-15 10:17 | Hospitalist Progress Note ---
Subjective Progress Notes Subjective This patient was admitted for a suicide attempt by overdose. She has had constipation since admission. Patient Complains of: Cardiovascular: No: Chest Pain Respiratory: No: Shortness of Breath Physical Exam Vital Signs Date Time Temp Pulse Resp B/P (MAP) Pulse Ox O2 Delivery O2 Flow Rate FiO2 10/15/18 09:47 95 18 117/79 (92) 96 Room Air 10/15/18 09:00 98.1 10/14/18 13:50 Intake and Output 10/15/18 06:59 Intake Total 2948 ml Balance 2948 ml Intake Oral 2050 ml IV Total 898 ml # Voids 4 Cardiovascular: Regular Rate and Rhythm Respiratory: Clear to Auscultation GI: Soft and Non-Tender Result Diagram: 10/15/18 0503 10/15/18 0503 Assessment and Plan Problems: (1) Suicide attempt by drug ingestion Status: Acute Assessment & Plan: She reports taking multiple medications in a suicide attempt . We do not know the exact quantities of the medications. Her salicylate levels have remained negative on repeat testing. Her initial acetaminophen level was 11 and repeat testing did not place her into toxic range. She was somewhat lethargic and tachycardic on arrival to the ICU, but has improved significantly. EKG has not shown any changes and no dysrhythmias were noted. She did have some mild acidosis and mild hypokalemia. (2) Hypokalemia Status: Acute Assessment & Plan: Resolved with supplementation. (3) Constipation Assessment & Plan: A constipation protocol has been ordered. Exam Sepsis Risk: No Definite Risk Problem Qualifiers (1) Suicide attempt by drug ingestion: Encounter type: initial encounter Qualified Codes: T50.902A - Poisoning by unspecified drugs, medicaments and biological substances, intentional self-harm, initial encounter HALEY ROBERTSON DO Oct 15, 2018 10:17
--- NOTE | 2018-10-15 12:50 | Hospitalist Depart ---
Discharge Summary Reason for Hosp/Final Diag: (1) Suicide attempt by drug ingestion Status: Acute Hospital Course & Plan: She reports taking multiple medications in a suicide attempt. We do not know the exact quantities of the medications. Her salicylate levels have remained negative on repeat testing. Her initial a cetaminophen level was 11 and repeat testing did not place her into toxic range. She was somewhat lethargic and tachycardic on arrival to the ICU, but has improved significantly. EKG has not shown any changes and no dysrhythmias were noted. She did have some mild acidosis and mild hypokalemia. (2) Hypokalemia Status: Acute Hospital Course & Plan: Resolved with supplementation. (3) Constipation Hospital Course & Plan: A constipation protocol has been ordered. Departure Latest Vital Signs Vital Signs 10/15/18 10/15/18 09:00 12:00 Temp 98.1 Pulse 111 Resp 22 B/P (MAP) 129/90 (103) Pulse Ox 97 O2 Delivery Room Air Weight (Pounds): 228 Weight (Ounces): 13.5 Result Diagram: 10/15/18 0503 10/15/18 0503 Condition: Improved Discharge: [facility] Discharge Instructions Home Meds Reported Medications Escitalopram Oxalate (LEXAPRO) 20 Mg Tablet, 20 MG PO QDAY, TAB 10/13/18 Lamotrigine (LAMOTRIGINE) 150 Mg Tablet, 150 MG PO BID 10/13/18 Discontinued Scripts Tramadol Hcl (TRAMADOL HCL) 50 Mg Tablet, 50 MG PO Q6H PRN for PAIN, #12 TAB 0 Refills Prov:CL SÁNCHEZ DO 06/08/18 Ondansetron (ZOFRAN ODT) 4 Mg Tab.rapdis, 4 MG PO Q6H PRN for NAUSEA/VOMITING, #20 TAB.JONATHAN 0 Refills Prov:CL SÁNCHEZ DO 06/08/18 Diet: Regular Activity: As Tolerated Special Instructions: Venous Thromboembolism Antithrombotics Is Pt On Any Antithrombotics?: No Problem Qualifiers (1) Suicide attempt by drug ingestion: Encounter type: initial encounter Qualified Codes: T50.902A - Poisoning by unspecified drugs, medicaments and biological substances, intentional self-harm, initial encounter HALEY ROBERTSON DO Oct 15, 2018 12:50
== END 2018-10-15 13:45 | DRG 918 ==
LOC: ER 00:37 → ICU 03:17
PROVIDERS: ADMIT Family Medicine; ATTEND Family Medicine
DX: T39.1X2A Poisoning by 4-Aminophenol derivatives, intentional self-harm, initial encounter (principal); T39.312A Poisoning by propionic acid derivatives, intentional self-harm, initial encounter; T45.0X2A Poisoning by antiallergic and antiemetic drugs, intentional self-harm, initial encounter; T39.8X2A Poisoning by other nonopioid analgesics and antipyretics, not elsewhere classified, intentional self-harm, initial encounter; T43.012A Poisoning by tricyclic antidepressants, intentional self-harm, initial encounter; K59.00 Constipation, unspecified; E87.6 Hypokalemia; R00.0 Tachycardia, unspecified; Z91.5 Personal history of self-harm
CPT/HCPCS: 36415; 71045; 80305; 80320; 80329; 81001; 81025; 82040; 82247; 82310; 82374; 82435; 82565; 82947; 83735; 84075; 84132; 84155; 84295; 84443; 84450; 84460; 84520; 85025; 93005; 96360; 99285; A4353; J2060; J3480; J7030; J7120

== ENCOUNTER 2018-10-15 13:58 | Inpatient (IN) | payer OTHER ==
[~2018-10-15] VITALS: Ht 170.2 cm; Wt 107.5 kg
[2018-10-15 13:55] VITALS: BP 118/86
[~2018-10-15 13:58] MED LIST changes: +ESCI20TA38 PO; +LAMO150T36 PO
[2018-10-15] MEDS ORDERED: MAG HYD/AL HYD/SIMETH 30ML UDC PO PRN (14:55)
[2018-10-15 18:00] VITALS: BP 129/86
[2018-10-15 20:49] VITALS: BP 110/96
[2018-10-15] MEDS: DOCUSATE SODIUM 100 MG CAP PO SCH (20:58)
[2018-10-16 06:16] VITALS: BP 102/70
[2018-10-16] MEDS: DOCUSATE SODIUM 100 MG CAP PO SCH ×2 (08:08→21:19)
[2018-10-16] MEDS: MULTIVITAMINS TAB PO SCH (08:09)
[2018-10-16 10:45] VITALS: BP 124/72
--- NOTE | 2018-10-16 12:08 | EKG ---
FACILITY: [facility] PATIENT NAME: RACHEL RAINEY : [id number] MR: [id number] V: [id number] EXAM DATE: ORDERING PHYSICIAN: PHOENIX PATRICIA TECHNOLOGIST: MIKE Marlow Reason : OD Blood Pressure : / mmHG Vent. Rate : 092 BPM Atrial Rate : 092 BPM P-R Int : 130 ms QRS Dur : 086 ms QT Int : 348 ms P-R-T Axes : 072 063 042 degrees QTc Int : 430 ms Normal sinus rhythm Normal ECG Now with normalization of inferior T inversion/flattening Confirmed by ALEA ZENDEJAS ([id number]) on 10/16/2018 1:32:22 PM Referred By: Confirmed By:ALEA ZENDEJAS
[2018-10-16 15:10] VITALS: BP 126/81
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
[2018-10-16 18:05] VITALS: BP 128/76
[2018-10-17 07:13] VITALS: BP 100/58
[2018-10-17] MEDS: MULTIVITAMINS TAB PO SCH (08:54)
[2018-10-17] MEDS: DOCUSATE SODIUM 100 MG CAP PO SCH ×2 (08:54→20:44)
--- NOTE | 2018-10-17 10:46 | BHS Progress Note ---
[facility] - Subjective Progress Notes Subjective "I'm a little frustrated today. I feel a little isolated. My best friend was going to visit me but she didn't."' Rating depression 04/06, anxiety 06/07, anger 06/07 Sleep variable,"I tossed and turned." Completed time line yesterday, talked w/mother "It didn't go well." Denies urge for harm to self, denies suicidal ideation Suicidal Ideation: None Homicidal Ideation: None [facility] - Objective Physical Exam Vital Signs Laboratory Tests 10/16/18 12:32 Laboratory Tests 10/16/18 12:32: Sodium Level 138, Potassium Level 3.9, Chloride Level 110, Carbon Dioxide Level 17, Blood Urea Nitrogen 11, Creatinine 1.00, Glomerular Filtration Rate Calc > 60.0, Random Glucose 90, Calcium Level 9.4, Total Bilirubin 0.2, Aspartate Amino Transf (AST/SGOT) 29, Alanine Aminotransferase (ALT/SGPT) 52, Alkaline Phosphatase 89, Total Protein 6.9, Albumin 3.9 Deferred Medications (Trade) Dose Ordered Sig/Radha Route PRN Reason Start Time Stop Time Status Last Admin Dose Admin Docusate Sodium (Colace(*) 100 Mg Cap (Or Equiv)) 100 mg BID PO 10/15/18 21:00 11/14/18 20:59 10/17/18 08:54 Multivitamins (Thera-M Enhanced Tab (Or Equiv)) 1 each QDAY PO 10/16/18 09:00 11/15/18 08:59 10/17/18 08:54 Muscle Strength and Tone: WNL Gait and Station: Steady [facility] Medications Reviewed: Side Effects, Benefits of Medication, Risks Allergies Reviewed: Yes Mental Status Exam General Appearance: Casual, Well Groomed, Good Eye Contact, Cooperative, Polite, Good Interaction Speech: Clear, Spontaneous, Normal Rate, Normal Rhythm, Normal Volume, Normal Tone Mood: Dysthmic/Depressed Affect: Full and Appropriate; No Calm; Anxious Thought Process: Organized, Logical, Goal Directed; No Loose Associations Thought Content: No Suicidal Ideation, No Homicidal Ideation, No Delusions, No Auditory Halllucinations, No Visual Hallucinations, No Thought Broadcasting, No Ideas of Reference, No Obsessions, No Compulsions Sensorium: Clear Cognition: Alert & Oriented-Person, Alert & Oriented-Place, Alert & Oriented- Time, Zxlfx-Wutjayft-Xszvtobdd Memory: Immediate, Recent, Remote Intelligence: Average Insight Judgment: Fair Result Diagram: 10/16/18 1232 [facility] Assessment and Plan Zqjx-dz-Qoam Encounter Date: Oct 17, 2018 Vgcq-ky-Vppt Encounter Time: 10:41 [facility] Plan: Admit to Unit, Necessary Precautions, Individual/Group Therapy, Admin/Titrate Meds, Educate Patient Multpiple Antipsychotics Used: Yes Problems: (1) Major depressive disorder, recurrent Status: Chronic (2) Adjustment disorder with depressed mood Status: Acute (3) Suicide attempt by drug ingestion Status: Acute (4) Overdose Status: Acute Condition Restart Lexapro and Lamotrigine Maintain precautions Monitor labs, EKG Treatment team 10/18/18 PHOENIX PATRICIA NP Oct 17, 2018 10:46
[2018-10-17] MEDS: ESCITALOPRAM OXALATE 10 MG TAB PO SCH (11:30)
[2018-10-17] MEDS: lamoTRIgine 100 MG TAB PO SCH (11:31)
[2018-10-17 13:06] VITALS: BP 129/77
[2018-10-17 15:05] VITALS: BP 125/75
[2018-10-18 05:59] VITALS: BP 122/71
[2018-10-18 06:13] LABS: PLATELET COUNT, AUTOMATED 234 K/uL (150-450)
[2018-10-18] MEDS: MULTIVITAMINS TAB PO SCH (07:49)
[2018-10-18] MEDS: ESCITALOPRAM OXALATE 10 MG TAB PO SCH (07:50)
[2018-10-18] MEDS: lamoTRIgine 100 MG TAB PO SCH (07:51)
[2018-10-18] MEDS: DOCUSATE SODIUM 100 MG CAP PO SCH ×2 (07:51→20:52)
[2018-10-18 10:30] VITALS: BP 128/90
--- NOTE | 2018-10-18 10:59 | BHS Progress Note ---
[facility] - Subjective Progress Notes Subjective Pt seen in treatment team meeting with Olya Sam her transactional attorney present by speaker phone. Pt says she is "starting to come out of the fog" from the effects of the overdose, feeling more alert. Says she did some "soul-searching" yesterday, and then she did a good job of talking about her several stressors, s etting good healthy boundaries with her mother, her need to get better about taking her medications regularly, the things that do and don't help her in therapy. She is psychologically-minded and motivated to make changes to prevent any future self harm. She understands how serious her overdose was and how close she came to . Today she is complaining of feeling dizzy, even while seated, does not sound like vertigo, she is steady on her feet, VSS. Also some blurred vision. I suspect this is all residual effects from overdose, especially with anticholinergic effects. Will decrease her lamictal to 100 mg because that may also be contributing to side effects. Pt has moved her bowels. We will be seeking an out-patient commitment rather than a commitment to the [facility], her transactional attorney is pursuing this. Will work with her on intensive DBT education/coping skills and hope for tentative discharge Thursday if we can have a team meeting with her roommate to solidify out patient support. Suicidal Ideation: Resolving Homicidal Ideation: None [facility] - Objective Physical Exam Vital Signs Vital Signs 10/18/18 05:59 Temp 97.4 Pulse 92 Resp 15 B/P (MAP) 122/71 (88) Pulse Ox 97 O2 Delivery Room Air Muscle Strength and Tone: WNL Gait and Station: Steady [facility] Medications Reviewed: Side Effects, Benefits of Medication, Risks Allergies Reviewed: Yes Mental Status Exam General Appearance: Casual, Well Groomed, Good Eye Contact, Cooperative, Polite, Good Interaction, Tearful Speech: Clear, Spontaneous, Normal Rate, Normal Rhythm, Normal Volume, Normal Tone Mood: Dysthmic/Depressed Affect: Sad, Anxious Thought Process: Organized, Logical, Goal Directed; No Loose Associations Thought Content: Suicidal Ideation (resolving); No Homicidal Ideation, No Delusions, No Auditory Halllucinations, No Visual Hallucinations, No Thought Broadcasting, No Ideas of Reference, No Obsessions, No Compulsions Sensorium: Clear Cognition: Alert & Oriented-Person, Alert & Oriented-Place, Alert & Oriented- Time, Rnszx-Reployxg-Rvuyrvovf Memory: Immediate, Recent, Remote Intelligence: Average Insight Judgment: Fair Result Diagram: 10/18/1860010/18/18600 [facility] Assessment and Plan Ttth-xm-Rldy Encounter Date: Oct 18, 2018 Rleo-fk-Jkuh Encounter Time: 10:00 [facility] Plan: Admit to Unit, Necessary Precautions, Individual/Group Therapy, Admin/Titrate Meds, Educate Patient Tobacco Medications: Not Appropriate Condition Multpiple Antipsychotics Used: No Problems: (1) Persistent depressive disorder (2) PTSD (post-traumatic stress disorder) (3) Suicide attempt by drug ingestion Status: Acute ALLEN LYONS MD Oct 18, 2018 10:59
[2018-10-18 12:24] VITALS: BP 133/87
[2018-10-18 21:58] VITALS: BP 131/85
[2018-10-19 05:55] VITALS: BP 114/69
[2018-10-19] MEDS: DOCUSATE SODIUM 100 MG CAP PO SCH ×2 (08:18→20:55)
[2018-10-19] MEDS: lamoTRIgine 100 MG TAB PO SCH (08:19)
[2018-10-19] MEDS: MULTIVITAMINS TAB PO SCH (08:19)
[2018-10-19] MEDS: ESCITALOPRAM OXALATE 10 MG TAB PO SCH (08:19)
--- NOTE | 2018-10-19 11:39 | BHS Progress Note ---
[facility] - Subjective Progress Notes Subjective Pt seen in conference room with staff. Pt reports anxious mood today, also c/o feeling reved up, hyper, with poor sleep. Speech is a little pressured, and she seems overwhelmed with multiple stressors: worried about her mother over- reacting to her suicide attempt, worried about a job, what her career should be, talking about her grief at having to abandon her career. Pt indicates that she has history of the lexapro causing her to feel hyper, with increased activity (pressured to clean and clean), and it always gives her significant insomnia. Sounds like she has SSRI-induced agitation bordering on hypomania. Will DC the lexapro. Pt still c/o blurred vision today, not as bad as yesterday. Will continue lamictal at 100 mg today-- likely increase tomorrow depending on blurred vision resolving. Suicidal Ideation: Resolving Homicidal Ideation: None [facility] - Objective Physical Exam Vital Signs Vital Signs 10/19/18 05:55 Temp 98.1 Pulse 90 Resp 15 B/P (MAP) 114/69 (84) Pulse Ox 97 O2 Delivery Room Air Muscle Strength and Tone: WNL Gait and Station: Steady [facility] Medications Reviewed: Side Effects, Benefits of Medication, Risks Allergies Reviewed: Yes Mental Status Exam General Appearance: Casual, Well Groomed, Good Eye Contact, Cooperative, Polite, Good Interaction, Tearful Speech: Clear, Spontaneous, Normal Rate (rapid, near pressured), Normal Rhythm, Normal Volume, Normal Tone Mood: Dysthmic/Depressed, Hyperthymic (labile) Affect: Sad, Anxious, Agitated (labile) Thought Process: Organized, Logical, Goal Directed; No Loose Associations Thought Content: Suicidal Ideation (resolving); No Homicidal Ideation, No Delusions, No Auditory Halllucinations, No Visual Hallucinations, No Thought Broadcasting, No Ideas of Reference, No Obsessions, No Compulsions Sensorium: Clear Cognition: Alert & Oriented-Person, Alert & Oriented-Place, Alert & Oriented- Time, Kwwkn-Oyllzseb-Jklzozyry Memory: Immediate, Recent, Remote Intelligence: Average Insight Judgment: Fair Result Diagram: 10/18/1860010/18/18600 [facility] Assessment and Plan Jlwl-ex-Znqc Encounter Date: Oct 19, 2018 Hanf-mr-Bhaz Encounter Time: 10:00 [facility] Plan: Admit to Unit, Necessary Precautions, Individual/Group Therapy, Admin/Titrate Meds, Educate Patient Tobacco Medications: Not Appropriate Condition Multpiple Antipsychotics Used: No Problems: (1) Persistent depressive disorder (2) PTSD (post-traumatic stress disorder) (3) Suicide attempt by drug ingestion Status: ALLEN Krer MD Oct 19, 2018 11:39
[2018-10-19 15:06] VITALS: BP 138/84
[2018-10-19 22:02] VITALS: BP 130/84
[2018-10-20 06:14] VITALS: BP 132/76
[2018-10-20] MEDS: lamoTRIgine 100 MG TAB PO SCH (07:51)
[2018-10-20] MEDS: MULTIVITAMINS TAB PO SCH (07:51)
[2018-10-20] MEDS: DOCUSATE SODIUM 100 MG CAP PO SCH (07:53)
[2018-10-20 08:15] VITALS: BP 124/82
--- NOTE | 2018-10-20 11:28 | BHS Discharge Summary ---
[facility] Discharge Summary Xaik-hi-Efdm Encounter Date: Oct 20, 2018 Znbs-jm-Tdnk Encounter Time: 09:00 Reason-Hosp/Final Diag (DSM-V): (1) Persistent depressive disorder Hospital Course & Plan: Pt was admitted to [facility] on transfer from ICU, she was maintained on suicide precautions. For the first day she was still pretty groggy, but was cooperative with attending all groups and therapy sessions throu ghout her hospital stay. She was highly motivated to learn DBT skills, mindfulness, coping skills. She talked a lot about her complicated relationship with her mother, and they did have a good conversation by phone while she was here-- pt was able to continue to set healthy boundaries with her mom. Pt decided to change therapists from her on-line therapist to a krwj-yy-qniw person here at [facility]. Pt described history of symptoms of hypomania which were typically induced by lexapro. This sounded like SSRI-induced agitation/hypomania, so we decided to take her off lexapro and use lamictal alone as antidepressant/mood stabilizer. She took 100 mg q am (to restart gradually) here on [facility], and was instructed to increase that to 150 mg q am after discharge. She denied suicidal ideation throughout her hospital stay and was discharged home in the company of her roommate. Both stated that there are no firearms nor pill stashes in the home. (2) PTSD (post-traumatic stress disorder) (3) Suicide attempt by drug ingestion Status: Acute Physical Exam Latest Vital Signs Vital Signs 10/20/18 08:15 Temp 98.2 Pulse 110 Resp 18 B/P (MAP) 124/82 (96) Pulse Ox 98 O2 Delivery Room Air Mental Status Exam General Appearance: Casual, Well Groomed, Good Eye Contact, Cooperative, Polite, Good Interaction Speech: Clear, Spontaneous, Normal Rate, Normal Rhythm, Normal Volume, Normal Tone Mood: Euthymic Affect: Full and Appropriate, Calm Thought Process: Organized, Logical, Goal Directed; No Loose Associations Thought Content: No Suicidal Ideation, No Homicidal Ideation, No Delusions, No Auditory Halllucinations, No Visual Hallucinations, No Thought Broadcasting, No Ideas of Reference, No Obsessions, No Compulsions, No Other Sensorium: Clear Cognition: Alert & Oriented-Person, Alert & Oriented-Place, Alert & Oriented- Time, Xgmvd-Izyafwcg-Cmsfmivch Memory: Immediate, Recent, Remote Intelligence: Average Insight Judgment: Good Departure Result Diagram: 10/18/1860010/18/18600 Condition: Improved Discharge to: Home Discharge Instructions Home Meds Reported Medications Lamotrigine (LAMOTRIGINE) 150 Mg Tablet, 150 MG PO QAM 10/13/18 Discontinued Reported Medications Escitalopram Oxalate (LEXAPRO) 20 Mg Tablet, 20 MG PO QDAY, TAB 10/13/18 Discontinued Scripts Tramadol Hcl (TRAMADOL HCL) 50 Mg Tablet, 50 MG PO Q6H PRN for PAIN, #12 TAB 0 Refills Prov:CL SÁNCHEZ DO 06/08/18 Ondansetron (ZOFRAN ODT) 4 Mg Tab.rapdis, 4 MG PO Q6H PRN for NAUSEA/VOMITING, #20 TAB.JONATHAN 0 Refills Prov:CL SÁNCHEZ DO 06/08/18 Multpiple Antipsychotics Used: No Diet: Regular Activity: As Tolerated Special Instructions: Follow up with [facility]. Take medication as prescribed. Follow up with primary care provider for medicaiton managment. Call crisis line if symptoms return. ALLEN LYONS MD Oct 20, 2018 11:28
== END 2018-10-20 10:00 | disposition home or self-care (01) | DRG 881 ==
LOC: BHS 13:58 → UNDOADMIN 13:58 → BHS 10-17 13:14
PROVIDERS: ADMIT Psychiatry & Neurology Psychiatry; ATTEND Psychiatry & Neurology Psychiatry
DX: F34.1 Dysthymic disorder (principal); T43.225A Adverse effect of selective serotonin reuptake inhibitors, initial encounter; F43.12 Post-traumatic stress disorder, chronic; F43.21 Adjustment disorder with depressed mood; T39.1X2D Poisoning by 4-Aminophenol derivatives, intentional self-harm, subsequent encounter; T39.312D Poisoning by propionic acid derivatives, intentional self-harm, subsequent encounter; T45.0X2D Poisoning by antiallergic and antiemetic drugs, intentional self-harm, subsequent encounter; Z81.1 Family history of alcohol abuse and dependence; Z81.3 Family history of other psychoactive substance abuse and dependence; Z81.8 Family history of other mental and behavioral disorders; Z91.410 Personal history of adult physical and sexual abuse; Z73.3 Stress, not elsewhere classified; Z65.8 Other specified problems related to psychosocial circumstances; Z62.820 Parent-biological child conflict
CPT/HCPCS: 36415; 82040; 82247; 82310; 82374; 82435; 82565; 82947; 84075; 84132; 84155; 84295; 84450; 84460; 84520; 85025; 93005